=== PATIENT | female | born 1985 | race African-American/Black ===

== ENCOUNTER 2016-11-27 14:54 | Emergency (ER) | payer OTHER ==
[~2016-11-27] VITALS: Ht 165.1 cm; Wt 69.3 kg
[2016-11-27 14:57] VITALS: BP 122/78; PULSE 91; RESP 10; O2SAT 98
--- NOTE | 2016-11-27 15:17 | ED.REPORT ---
HPI-Rash / Abscess Date of Service Nov 27, 2016 ED Provider: Diane Browning History of Present Illness: rash started yesterday. used lotion from bath [employer] body. put new lotion on arms and legs, rash is on arms and legs. has sensitive skin. primary care is [facility]. carol helped earlier Nursing Notes Stated Complaint: ITCHY BUMPS Chief Complaint: Allergic Reaction Nursing Notes Reviewed: Yes Allergies: Coded Allergies: No Known Allergies (Unverified , 11/27/16) General Time Seen by MD: 15:08 Chief Complaint Rash Hx Obtained From: Patient Past Medical History Past Medical History Denies: Asthma Past Surgical History denies Smoking History Never Smoker Social History Alcohol Use: "Social" Drug Use: Denies drug use Other Social History: Occupation no work or school at this time 11/27/2016 Review of Systems Basic Review of Systems : No dysuria, No frequency Hematologic: No bleeding, No bruising Endocrine: No cold intolerance, No heat intolerance, No weight gain, No weight loss Neurologic: NL mental status, No weakness, No numbness Psychiatric: Normal thought content Physical Exam Initial Vital Signs Vital Signs (First) Date Time Temp Pulse Resp B/P Pulse Ox O2 Delivery O2 Flow Rate FiO2 11/27/16 14:57 36.8 91 10 122/78 98 Room Air Initial VS: Reviewed, Vital signs normal Head / Eyes: Atraumatic, Normocephalic, PERRL ENT: Mucous membranes moist, Conjunctiva normal, No scleral icterus Neck: Supple, Non-tender, Full range of motion Respiratory: Breath sounds normal, Clear to auscultation, No respiratory distress Cardiovascular: Regular rate & rhythm, Heart sounds normal, Intact distal pulses Abdomen / GI: Soft, Non-tender, No guarding, No rebound, No distention Back: No CVA tenderness Lymphatic: No lymphadenopathy Extremities: Vascular intact, Neuro intact, No swelling, No tenderness Neurologic: Alert, Oriented, Nonfocal Psychiatric: Mood/affect normal, Behavior normal, Normal thought content General/Constitutional: Awake, Alert, No acute distress, Well appearing, Well developed, Well hydrated, Well nourished, Cooperative, Not toxic appearing Color / Condition: Positive: Rash present Rash / Lesion Notes: multiple papules on arms and legs Rash / Lesion Location: Positive: Localized Discharge & Departure Impression: Primary Impression: Contact dermatitis Contact dermatitis type: unspecified Contact dermatitis trigger: unspecified trigger Qualified Code: L25.9 - Unspecified contact dermatitis, unspecified cause Disposition: Home Patient Instructions: Contact Dermatitis (ED) Additional Instructions: The fact that you have the rash where you put the lotion is highly suspicious for contact dermatitis. Use visteral 25 to 50 mg every 6 hours for day time itching. Use doxepin 10 mg at night for night time itching. You can use triamcinoline to the rash to help it fade. Stay cool. You can test the lotion on your skin in a month or so and see if you break out again. Please follow with primary care. Return with any concerns. Referrals: Crescencio Melgoza MD (PCP) EDSupervising Provider for APC: Amadeo James MD copies to: Crescencio Melgoza MD, Sue ARNP Nov 27, 2016 15:16
== END 2016-11-27 15:53 | disposition home or self-care (01) ==
LOC: SED 14:54
DX: L25.0 Unspecified contact dermatitis due to cosmetics (principal)

== ENCOUNTER 2016-11-29 15:00 | Emergency (ER) | payer OTHER ==
[~2016-11-29] VITALS: Ht 165.1 cm; Wt 69.1 kg
[2016-11-29 15:14] VITALS: BP 114/81; PULSE 100; RESP 16; O2SAT 98
--- NOTE | 2016-11-29 15:26 | ED.REPORT ---
HPI-Recheck W/B/S Date of Service Nov 29, 2016 ED Provider: History of Present Illness: returns after being seen 2 days ago for contact dermatitis on arms and legs. rash has increased in size, itching still continues. Used a new body lotion on arm and legs. Pateint with hx of hives. Was given rx for visteral for daytime itching and doxepin for night time itching and triamcinoline Nursing Notes Stated Complaint: FOLLOW UP ON RASH Chief Complaint: Wound Recheck/Suture Removal Nursing Notes Reviewed: Yes Allergies: Coded Allergies: No Known Allergies (Unverified , 11/27/16) General Time Seen by Provider: 15:25 Chief Complaint Other (rash) Hx Obtained From: Patient Past Medical History Past Surgical History denies Smoking History Never Smoker Social History Alcohol Use: "Social" Drug Use: Denies drug use Other Social History: Occupation no work or school at this time 11/27/2016 Ambulatory Status Independent Review of Systems Basic Review of Systems Eyes: Vision NL, No discharge ENT: Hearing NL, No pain, No nasal congestion, No pharyngeal pain Respiratory: No shortness of breath, No cough, No wheeze Cardiovascular: No chest pain, No dyspnea on exertion, No orthopnea, No parox noct dyspnea, No palpitations GI: No abdominal pain, No anorexia, No nausea, No vomiting : No dysuria, No frequency Musculoskeletal: No extremity swelling, No extremity pain, Full range of motion , Joints NL Hematologic: No bleeding, No bruising Endocrine: No cold intolerance, No heat intolerance, No weight gain, No weight loss Allergy / Immune: No allergy Neurologic: NL mental status, No weakness, No numbness Psychiatric: Normal thought content Physical Exam Initial Vital Signs Vital Signs (First) Date Time Temp Pulse Resp B/P Pulse Ox O2 Delivery O2 Flow Rate FiO2 11/29/16 15:14 36.9 100 16 114/81 98 Room Air Initial VS: Reviewed, Vital signs normal General/Constitutional: Well-developed, Well-nourished Head / Eyes: Atraumatic, Normocephalic, PERRL ENT: Mucous membranes moist, Conjunctiva normal, No scleral icterus Neck: Supple, Non-tender, Full range of motion Respiratory: Breath sounds normal, Clear to auscultation, No respiratory distress Cardiovascular: Regular rate & rhythm, Heart sounds normal, Intact distal pulses Abdomen / GI: Soft, Non-tender, No guarding, No rebound, No distention Back: No CVA tenderness Lymphatic: No lymphadenopathy Extremities: Vascular intact, Neuro intact, No swelling, No tenderness Neurologic: Alert, Oriented, Nonfocal Psychiatric: Mood/affect normal, Behavior normal, Normal thought content Rash / Lesion Notes: the papules that were present 2 days ago have increase in size, no palpable floutance, increased warmth. new small papules extending on arm and leg. 3 small papules on right ear also, few scatered on abd General/Constitutional: Awake, Alert, No acute distress, Well appearing, Well developed, Well hydrated Respiratory / Chest: Atraumatic, Breath sounds NL, Breath sounds = bilat, No respiratory distress Cardiovascular: Heart rate NL, Regular rhythm, Heart sounds NL, No gallop Re-Eval/Medical Decision Med Decision/Clinical Course patient still continues with itching, rash appears to have developed into follulicitis. With 3 new spots on ear will also treat with steroids Discharge & Departure Impression: Primary Impression: Folliculitis Disposition: Home Additional Instructions: You are right the rash does look worse. It looks like some of the bumps have become infected. Start keflex 500 mg 4 times a day for 7 days. Because it looks like some of bumps have started on your ear, a short course of steroids will be started also. Avoid itching. These medications are safe with your headache medication. Continue with the itching pills until the rash is improving. Also start zyrtec daily. Referrals: Crescencio Melgoza MD (PCP) EDSupervising Provider for APC: Yusef Duque MD copies to: Crescencio Melgoza MD, Sue ARNP Nov 29, 2016 15:26
== END 2016-11-29 15:50 | disposition home or self-care (01) ==
LOC: SED 15:00
DX: L73.9 Follicular disorder, unspecified (principal)

== ENCOUNTER → 2017-06-22 | Day surgery (SDC) | payer OTHER ==
[~2017-06-22] VITALS: Ht 165.1 cm; Wt 66.7 kg
[~2017-06-22] MED LIST: Ketamine 10 mg/mL 20 mL Inj ONE; Lactated Ringer's 1,000 ML IV ONE; Lactated Ringer's 1,000 ML IV SCH; MetoCLOpramide 5 mg/mL 2 mL Inj IVPUSH PRN; Ondansetron 2 mg/mL 2 mL Inj IVPUSH PRN; Propofol 10,000 mCg/mL 20 mL Inj ONE; fentaNYL-PF 50 mCg/mL 2 mL Inj ONE
[2017-06-22 15:04] VITALS: BP 114/63; PULSE 95; O2SAT 100
--- NOTE | 2017-06-22 15:53 | PCM.ENDEGD ---
EGD Date of Service: Jun 22, 2017 Physician Eliseo Sanchez MD Pre Procedure Diagnosis: H. pylori abdominal pain and rule out complications from H. pylori. Post Procedure Dx & Findings: Diffuse gastropathy Procedure Esophagogastroduodenoscopy PROCEDURE IN DETAIL: Sedation by anesthesiology After proper sedation, Olympus video endoscope was inserted into patient's mouth and esophagus was successfully intubated. Scope introduced esophagus. Esophagus showed normal shiny whitish mucosa consistent with squamous cell component. Z line was intact at 40 cm from the incisors. Scope further advanced to the stomach. The entire stomach showed atrophy redness and edema consistent with gastropathy. Biopsies done from the proximal to the distal stomach.. Cardia fundus body antrum pylorus were all visualized. Retroflexion was done. Stomach was easily inflated and deflatable using air. Scope further advanced to the distal duodenum. Duodenum revealed normal villous structures with normal appearing folds without any mass ulcer erosion. Impression Diffuse gastropathy but no ulcers or lesions. Recommendation Await biopsies Presedation Assessment Risks and Benefits Informed consent was obtained from the patient after all risks and benefits including but not limited to drug reaction, infection, pain, bleeding, perforation, as well as alternatives were discussed. Patient monitoring Continuous pulse oximetry, cardiac monitoring, blood pressure monitoring, IV access, and oxygen at 2L per nasal cannula. Complications There were no periprocedural complications identified. Post Procedure Plan Post Procedure Recommendations 1. Restrict activities today. 2. Resume normal activities in the morning. 3. Resume medications. 4. GERD behavioral modification: - Avoid fatty, acidic, spicy, large meals - Do not lie down after meals - Do not eat or drink anything for at least 2 1/2 hours before going to bed at night - Discontinue tobacco and alcohol - Decrease or avoid caffeine - Avoid chocolate and mints - Decrease weight - Avoid aspirin and non steroidal anti-inflammatory agents (NSAID) such as Aleve, Advil, Mobic, Naproxen, Ibuprofen, etc 5. Add proton pump inhibitor. Take 30 minutes before 1st meal of the day. 6. Patient informed of normal post procedure side effects as bloating, drowsiness, blood streaking in the stool 7. If gastric biopsy reveal H.pylori, continue with appropriate treatment 8. If small bowel biopsy reveals celiac, continue with appropriate treatment 9. Please don't hesitate to call me with any questions Eliseo Sanchez MD Jun 22, 2017 15:52
--- NOTE | 2017-06-22 16:16 | PCM.ENDCOL ---
Colonoscopy Date of Service: Jun 22, 2017 Physician Eliseo Sanchez MD Pre Procedure Diagnosis: Blood in the stools Post Procedure Dx & Findings: Hemorrhoids Procedure Colonoscopy PROCEDURE IN DETAIL: Sedation by anesthesiology Prep adequate Withdrawal time 11 minutes After unremarkable rectal examination the Olympus video colonoscope was inserted patient's anal canal and was advanced to cecum. Landmarks were identified including the ileocecal valve and appendiceal orifice. Scope was withdrawn systematically. Visualized colonic mucosa showed healthy shiny mucosa with normal healthy-appearing vasculature. External In the rectum retroflexion was done which showed hemorrhoids. Anal canal was inspected carefully on the way out and hemorrhoids noted. Impression Hemorrhoids Recommendation Repeat colonoscopy when she is 51 years old. Presedation Assessment Risks and Benefits Informed consent was obtained from the patient after all risks and benefits including but not limited to drug reaction, infection, pain, bleeding, perforation, as well as alternatives were discussed. Patient monitoring Continuous pulse oximetry, cardiac monitoring, blood pressure monitoring, IV access, and oxygen at 2L per nasal cannula. Complications There were no periprocedural complications identified. Post Procedure Plan Post Procedure Recommendations 1. Restrict activities today. 2. Resume normal activities in the morning. 3. Resume medications. 4. Patient informed of normal post procedure side effects as bloating, drowsiness, blood streaking in the stool. 5. average risk CRCS. If colon polyps come back as: -Hyperplastic- can repeat colonoscopy in 10 years -Tubular adenoma- repeat colonoscopy in 5 years -Tubulovillous/villous adenoma- repeat colonoscopy in 3 years -If any dysplasia- return to clinic as soon as possible 6. Please don't hesitate to call me with any questions. Eliseo Sanchez MD Jun 22, 2017 16:16
[2017-06-22 16:22] VITALS: BP 100/59; PULSE 85; RESP 16; O2SAT 100
[2017-06-22 16:32] VITALS: BP 97/60; PULSE 82; RESP 16; O2SAT 100
[2017-06-22 16:42] VITALS: BP 113/70; PULSE 72; RESP 16; O2SAT 100
--- NOTE | 2017-06-23 09:24 | PCM.HPANE ---
Patient Data Surgeon Admitting Provider: Attending Provider:Eliseo Sanchez MD Primary Care Physician:Ruma Culver Other Provider: Reason for Visit Blood In Stool Ht/WT & BMI Height (Feet): 5 Height (Inches): 5 Weight (Kilograms): 66.68 Body Mass Index 24.00 Allergies Coded Allergies: No Known Allergies (Unverified , 11/27/16) Past Anesthesia History Anesthesia History: Denies:: Abnormal Airway, Anesthesia Reactions, Difficult Intubation, Fam Anesthesia Reaction, Fam Malignant Hypertherm, Malignant Hyperthermia Diabetes History Hx Diabetes?: No MRSA MRSA: No Medications Hypertension Medication: No Home Meds Incl Beta Amber: No History History of ENT Problems?: No HEENT History: Denies:: Abnormal Airway Difficult Intubation Dysphagia Hearing Problem Denture Type: None Teeth Condition: Within Normal Limits Missing Teeth Hx of Heart Problems?: No Cardiovascular History: Denies:: AICD Congestive Heart Failure Hypertension Pacemaker Valvular Heart Disease Hx of Respiratory Problem?: No Respiratory History: Denies:: Asthma COPD Chest Surgery Cough Dyspnea Emphysema Hemoptysis Oxygen Administration Pneumonia Pulmonary Embolism Tuberculosis Use of C-PAP Machine Use of Inhalers / NEBS Hx Neurologic Problems?: No (melena) Neurological History: Denies:: CVA Hx of GI Problems?: Yes Hx of Problems?: No HX of Peritoneal Dialysis: No Female Hx: Denies:: Currently Hx Musculoskeletal Problems?: No Musculoskeletal History: Denies:: Fibromyalgia Joint Replacement Psycho Social History: Denies:: Anxiety Hx Depression Hx Surgeries?: Yes (d&c) Hx Any Other Health Problems?: No Hx Diabetes: No Hx Alcohol Use: Yes (rarely) Smoking Status: Never Smoker Stop/Bang Treated for Sleep Apnea?: No Do You Have a CPAP Machine?: No S-Snoring: Do You Snore Loudly: No T-Tired: feel tired, fatigued: No O-Obsered: Observed not breath: No P-Blood Pressure: treated: No B- Body Mass Index > 35 kg/m2: No A- Age over 50: No N- Neck Large Circumference: No G- Gender Male: No PRINCESS Total Score: 0 PRINCESS Risk Assessment: Low Risk, <3 Yes Risk Assessment Category Category 1A: Patient has history of documented sleep apnea, and HAS NOT received any narcotic, sedative or anesthesia administration during this stay. Category 1B: Patient has history of documented sleep apnea, and HAS received any narcotic , sedative or anesthesia administration during this stay Category 2: Patient has SUSPECTED Obstructive Sleep Apnea, and HAS received any narcotic , sedative or anesthesia administration during this stay. Category 3: Patient has SUSPECTED Obstructive Sleep Apnea and HAS NOT received narcotic, sedative or anesthesia administration during this stay. Category 4: Outpatient in Procedural Areas with known sleep apnea or who screen positive for High Risk via the STOP/BANG questionnaire. Exam Exam General Appearance: Alert, Oriented X3, Cooperative, No Acute Distress HEENT/AIRWAY: MP 2 Lungs: Clear to Auscultation, Normal Air Movement Heart: Exam Unremarkable, Regular Rate/Rhythm, No Murmurs/Rubs/Gallops Plan Impression Patient chart reviewed, patient interviewed and anesthestic plan with risks, benefits, and alternatives discussed, and informed consent obtained. ASA Physical Status: ASA1 Normal Healthy Anesthetic Plan: MAC Bene/Risks/Altern/Consents: Yes HP Complete Prior to Induction: Yes Michael Ruiz MD Jun 23, 2017 09:24
--- NOTE | 2017-06-23 09:25 | PCM.ANEP1 ---
Post Anesthesia PACU Phase 1 Assessment Anesthetic Administered: MAC Level of Alertness: Awake, talking BANERJEE's with Equal Strength: Yes Pain: No Nausea or Vomiting: No CV Function & Hydration Stable: Yes Airway Device: none Oxygen Delivery: Nasal Cannula Lungs: Clear to Auscultation, Normal Air Movement PACU Phase 2 Assessment Complications: No Follow up Care: No Patient Instructions Provided: N/A Michael Ruiz MD Jun 23, 2017 09:25
--- NOTE | 2017-06-27 11:57 | PATH ---
SURGICAL PATHOLOGY Attending Physician:Eliseo Sanchez M.D. CASE STATUS: Signed Out PATIENT NAME: BIJU HOWARD PID: [id number] : 1985 DATE COLLECTED:06/22/2017 00:00 SPECIMEN: Gastric, Biopsy CLINICAL HISTORY: 1). GASTRIC BIOPSY RULE OUT H PYLORI FINAL DIAGNOSIS: Stomach, Biopsy: Helicobacter pylori gastritis. Negative for intestinal metaplasia. Negative for dysplasia and malignancy. ICD10: K29.70 B96.81 GROSS DESCRIPTION: The specimen is received in formalin, labeled with the patient's name, sublabeled as gastric bx' s, and consists of multiple fragments of davis glistening semitranslucent tissue (0.7 x 0.2 x 0.1 cm in aggregate). Section code: (A) tissue. Specimen entirely submitted. 06/24/17 ICD-9 CODES: CPT CODES: 1: 80830 Electronically Signed Out Mari Mckeon MD [facility] [address], [place] [address] Technical component performed at [facility], [facility] [address], [place], [address]
== END | disposition home or self-care (01) ==
LOC: END 01:28
PROVIDERS: ATTEND Internal Medicine
DX: K92.1 Melena (principal); K64.8 Other hemorrhoids; K29.70 Gastritis, unspecified, without bleeding; B96.81 Helicobacter pylori [H. pylori] as the cause of diseases classified elsewhere; K31.9 Disease of stomach and duodenum, unspecified
CPT/HCPCS: 43239; 45378; J2250; J2704; J3010; J7120